=== PATIENT | female | born 1955 | race Two or more races ===

== ENCOUNTER 2022-09-06 08:15 | Inpatient (IN) | payer OTHER ==
[~2022-09-06] VITALS: Ht 154.9 cm; Wt 90.7 kg
[2022-09-06] MEDS ORDERED: DILTIAZEM ER240 M3 PO (09:57)
[2022-09-06] MEDS ORDERED: HYDROCHLOROTHIA25 MG PO (09:58)
[2022-09-06] MEDS ORDERED: MONTELUKAST SODI4 M1 PO (09:59)
[2022-09-06] MEDS ORDERED: PROAIR RESPICL90 MCG IH (10:00)
[2022-09-06] MEDS ORDERED: SYMBICORT 80/10.2 GM IH (10:02)
[2022-09-13] MEDS ORDERED: PANTOPRAZOLE SO40 MG (11:11)
[2022-09-13] MEDS ORDERED: EZETIMIBE10 MG (11:11)
[2022-09-13] MEDS ORDERED: FLONASE16 GM (11:11)
[2022-09-15] MEDS ORDERED: ELIQUIS2.5 MG PO (08:24)
[2022-09-15] MEDS ORDERED: DUI500 PO (08:24)
[2022-09-15] MEDS ORDERED: PERCOCET 5-3251 EACH PO (08:24)
== END 2022-09-15 11:57 | DRG 470 ==
LOC: O/R 09-12 05:42 → SURH 09-12 07:00 → SURG 09-12 15:40
PROVIDERS: ADMIT Orthopaedic Surgery; ATTEND Orthopaedic Surgery
PROC: 0MBM0ZZ Excision of Left Hip Bursa and Ligament, Open Approach (ICD-10-PCS; 2022-09-12)
PROC: 0SRD0JZ Replacement of Left Knee Joint with Synthetic Substitute, Open Approach (ICD-10-PCS; principal; 2022-09-12 07:00)
DX: M16.12 Unilateral primary osteoarthritis, left hip (principal); D62 Acute posthemorrhagic anemia